=== PATIENT | female | born 1975 | race Two or more races ===

== ENCOUNTER 2017-07-08 09:37 | Inpatient (IN) | payer OTHER ==
[~2017-07-08 09:37] MED LIST: ELECTROLYTE-148 SOLN 1,000 ML IV SCH
[2017-07-08] MEDS ORDERED: CITRIC ACID/SODIUM CITRATE 30 ML UNIT-DOSE CUP PO ONE (10:15)
[2017-07-08 10:25] VITALS: BMI 31.1
[2017-07-08] MEDS ORDERED: ELECTROLYTE-148 SOLN 1,000 ML IV SCH (10:37)
[2017-07-08] MEDS ORDERED: IBUPROFEN 800 MG/8 ML IJ IVPB PRN (11:47)
[2017-07-08] MEDS ORDERED: oxyCODONE HCL 5 MG TABLET PO PRN (11:47)
[2017-07-08] MEDS ORDERED: METHYLERGONOVINE MALEATE 0.2 MG/1 ML AMP IM PRN (11:47)
--- NOTE | 2017-07-08 11:57 | HP ---
Past Medical History - Admission History of Present Illness: 41 y/o with h/o prior delivery here for scheduled repeat c section. Pt with h/o SAB X 3. Pt also with known fibroids. AMA. Chronic UTIs on macrobid suppression throughout . History Source: Patient, Medical Record Limitations to Obtaining History: No Limitations - Past Medical History MEDICAL RECORDS COORDINATOR: No: Migraine Cardiovascular: No: AFIB, HTN Gastrointestinal: Yes: GERD. No: Inflamatory Bowel Disease Renal/: Yes: UTI (pt with chronic UTI , on suppressive therapy) Reproductive: Yes: Fibroids, Other (SAB X 3). No: Ectopic ...: 5 ...Para: 1 ...Term: 1 ...: 0 ...Spon : 3 ...Induced : 0 ...LMP: 10/15/16 ... Weeks Gestation by Dates: 37.5 ...EDC by Dates: 07/24/17 ...EDC by Sono: 07/15/17 Infectious Disease: No: C-Diff, MRSA, STD's Psych: No: Anxiety, Bipolar, Depression - Past Surgical History Past Surgical History: Yes: None Hx Myomectomy: No Hx Transabdominal Cerclage: No - Smoking History Smoking history: Never smoked Have you smoked in the past 12 months: No Aproximately how many cigarettes per day: 0 - Alcohol/Substance Use Hx Alcohol Use: No History of Substance Use: reports: None - Social History ADL: Independent History of Recent Travel: No Home Medications - Allergies Allergies/Adverse Reactions: Allergies Allergy/AdvReac Type Severity Reaction Status Date / Time No Known Drug Allergies Allergy Verified 07/08/17 10:28 sesame seed Allergy Verified 07/08/17 10:28 - Home Medications Home Medications: Ambulatory Orders Vit/Iron Fumarate/FA [ Tablet] 1 tab PO DAILY 07/08/17 Review of Systems - Review of Systems Constitutional: reports: No Symptoms Eyes: reports: No Symptoms HENT: reports: No Symptoms Neck: reports: No Symptoms Cardiovascular: reports: No Symptoms Respiratory: reports: No Symptoms Gastrointestinal: reports: No Symptoms Genitourinary: reports: No Symptoms Breasts: reports: No Symptoms Reported Musculoskeletal: reports: No Symptoms Integumentary: reports: No Symptoms Neurological: reports: No Symptoms Endocrine: reports: No Symptoms Hematology/Lymphatic: reports: No Symptoms Psychiatric: reports: No Symptoms Physical Exam - Maternity Vital Signs: Vital Signs Temperature 98.2 F 07/08/17 09:37 Pulse Rate 78 07/08/17 09:37 Respiratory Rate 20 07/08/17 09:37 Blood Pressure 138/79 07/08/17 09:37 O2 Sat by Pulse Oximetry (%) Constitutional: Yes: Well Nourished, No Distress, Calm Eyes: Yes: Conjunctiva Clear, EOM Intact HENT: Yes: Atraumatic, Normocephalic Neck: Yes: Supple, Trachea Midline Cardiovascular: Yes: Regular Rate and Rhythm Lungs: Clear to auscultation - Abdominal Exam/OB Number of Fetuses: Single Presentation: Vertex Contractions: No Category: I Accelerations: Uniform Decelerations: None - Vaginal Exam/OB Vaginal Bleediing: No Speculum Exam: No Amniotic Membrane Status: Intact - Physical Exam Edema: No Psychiatric: Yes: Alert, Oriented Hemorrhage Risk Assessment - Risk Factors Medium Risk Factors: Yes: Prior , uterine surgery,or multiple laparotomies High Risk Factors: Yes: None Risk Score: 1 Risk Level: Medium Risk Imaging - Results Chest X-ray: Pending X-ray: Pending Cat Scan: Pending Ultrasound: Pending MRI: Pending EKG: Pending Other: Pending Problem List - Problems (1) Advanced maternal age (AMA), 40 years or greater Code(s): [id number] - (2) Fibroids Code(s): D25.9 - LEIOMYOMA OF UTERUS, UNSPECIFIED Assessment/Plan 41 y/o with SIUP at 39 weeks, for scheduled repeat c section AFVSS FHTS cat 1 NPO, dueñas, SCDs anesthesia and nursing ready and aware
[2017-07-08] MEDS ORDERED: OXYTOCIN 20 UNITS in 0.9% NS 20 UNIT/1,000 ML INFUS.BAG IV SCH (12:00)
[2017-07-08] MEDS ORDERED: ONDANSETRON 4 MG/2 ML VIAL IVPUSH PRN (12:50)
[2017-07-08] MEDS ORDERED: ACETAMINOPHEN 1000 MG/100 ML VIAL (NON FORMULARY) IVPB PRN (12:51)
--- NOTE | 2017-07-08 12:58 | OP ---
Operative Note - Note: Operative Date: 07/08/17 Pre-Operative Diagnosis: prior delivery, declined TOLAC, fibroid uterus Operation: repeat low transverse delivery Post-Operative Diagnosis: Same as Pre-op Surgeon: Dang Santiago Ct Scan Technologist: Casey Diaz Anesthesiologist/MACHINE CEMENTER AND FOLDER: Rashida Herrera Anesthesia: Spinal Specimens Removed: placenta, cord blood Estimated Blood Loss (mls): 600 Operative Report Dictated: Yes
--- NOTE | 2017-07-08 13:28 | SURG ---
Surgery Certification Technician Note Certification Technician: Casey Diaz PA-C Date of Service: 07/08/17 Diagnosis: prior delivery, declined TOLAC, fibroid uterus Procedure: repeat low transverse delivery I was present for the entirety of the operative procedure. For further detail, please refer to operative report. Visit type - Case Type Case Type: Scheduled Admission - New patient This patient is new to me today: Yes Date on this admission: 07/08/17
[2017-07-08] MEDS ORDERED: TUBERCULIN PPD 5 TU/0.1ML SYRINGE (IN PATIENT USE ONLY) ID ONE (16:45)
[2017-07-08] MEDS: FERROUS SO4 325 MG TABLET (FP) PO SCH (21:22)
--- NOTE | 2017-07-09 08:29 | PN ---
Post Progress Note - Subjective Subjective: 41 yo Para 2 with previous , status post repeat , seen and evaluated. She's doing well, she's out of bed to chair. Post Day: 1 Type of Delivery: Repeat C/S Vital Signs: Vital Signs Temperature 98.9 F 07/09/17 06:00 Pulse Rate 69 07/09/17 06:00 Respiratory Rate 18 07/09/17 06:00 Blood Pressure 108/52 07/09/17 06:00 O2 Sat by Pulse Oximetry (%) 100 07/08/17 14:00 Breast Exam: Yes: Soft Uterus: Yes: Fundus Firm Incision: Yes: Dressing dry and intact Abdomen/GI: Yes: Abdomen soft Lochia: Yes: Rubra Lochia, amount: Small Extremities: Yes: Calves non-tender Activity: Ambulating Problem List - Problems (1) Status post repeat low transverse section Code(s): Z98.891 - HISTORY OF UTERINE SCAR FROM PREVIOUS SURGERY Assessment/Plan Status post repeat Ambulation Analgesia as needed Continue routine post op care
[2017-07-09 08:36] LABS: BASOPHIL 0.2 % (0-2.0); EOSINOPHIL 0.5 % (0-4.5); MCH 29.1 pg (25.7-33.7); MCHC 34.3 g/dl (32.0-36.0); MEAN PLT VOLUME 10.6 fl (7.5-11.1); PLATELET COUNT 104 K/MM3 (134-434); RDW 14.6 % (11.6-15.6); WHITE BLOOD COUNT 10.8 K/mm3 (4.0-10.0)
[2017-07-09] MEDS: PRENATAL VITAMINS W/ FOLIC ACID TABLET (FP) PO SCH (10:33)
[2017-07-09] MEDS: FERROUS SO4 325 MG TABLET (FP) PO SCH ×2 (10:33→23:00)
[2017-07-09] MEDS ORDERED: BISACODYL 10 MG SUPP.RECT RC PRN (11:48)
[2017-07-09] MEDS: SIMETHICONE 80 MG TAB.CHEW (FP) PO PRN ×2 (11:52→17:39)
[2017-07-09] MEDS: oxyCODONE HCL 5 MG TABLET PO PRN ×3 (11:52→23:00)
[2017-07-09] MEDS: ACETAMINOPHEN 325 MG TABLET (FP) PO PRN ×3 (11:53→23:01)
[2017-07-09 12:48] LABS: URINE APPEARANCE SLCLOUDY; URINE BILIRUBIN NEGATIVE (NEGATIVE); URINE BLOOD 3+ (NEGATIVE); URINE COLOR LTYELLOW; URINE GLUCOSE (UA) 1+ (NEGATIVE); URINE KETONE NEGATIVE (NEGATIVE); URINE NITRITE NEGATIVE (NEGATIVE); URINE UROBILINOGEN NEGATIVE mg/dL (0.2-1.0)
[2017-07-09 12:52] LABS: URINE PROTEIN 1+ (NEGATIVE)
[2017-07-09 13:04] LABS: URINE MUCUS RARE; URINE RBC 3 /hpf (0-3); URINE WBC 8 /hpf (3-5)
--- NOTE | 2017-07-09 15:09 | PN ---
Progress Note (short form) - Note Progress Note: Anesthesia POD#1 S/P Repeat under Spinal A and Duramorph VSS,no N/V,some residual itch,moving fine,pain is under control. Rashida Herrera MD.
[2017-07-09 17:41] LABS: URINE LEUK ESTERASE TRACE (NEGATIVE)
[2017-07-09] MEDS: SENNOSIDES/DOCUSATE COMBO (SENNA PLUS) TABLET (UD) PO PRN (23:01)
[2017-07-10] MEDS: ACETAMINOPHEN 325 MG TABLET (FP) PO PRN ×3 (05:01→20:57)
[2017-07-10] MEDS: SIMETHICONE 80 MG TAB.CHEW (FP) PO PRN ×3 (05:01→20:58)
[2017-07-10] MEDS: oxyCODONE HCL 5 MG TABLET PO PRN ×2 (05:02→09:10)
--- NOTE | 2017-07-10 07:34 | PN ---
Post Note - Post Date of Delivery: 07/08/17 Post Day: 2 Vital Signs: Vital Signs - 24 hr 07/09/17 07/09/17 07/09/17 08:00 09:00 10:00 Temperature 98.4 F Pulse Rate 70 Respiratory 20 20 20 Rate Blood Pressure 110/60 07/09/17 07/09/17 07/09/17 11:00 12:00 13:00 Temperature Pulse Rate Respiratory 20 20 20 Rate Blood Pressure 07/09/17 07/09/17 07/09/17 14:00 15:00 15:05 Temperature 99 F Pulse Rate 80 Respiratory 20 20 20 Rate Blood Pressure 110/60 07/09/17 07/09/17 18:00 22:00 Temperature 98.8 F 98.9 F Pulse Rate 72 69 Respiratory 20 18 Rate Blood Pressure 100/60 116/60 Labs: Laboratory Results - last 24 hr 07/09/17 07/09/17 08:00 12:00 WBC 10.8 H RBC 3.70 Hgb 10.8 Hct 31.4 L MCV 85.0 MCH 29.1 MCHC 34.3 RDW 14.6 Plt Count 104 L MPV 10.6 D Neutrophils % 82.0 Lymphocytes % 9.4 Monocytes % 7.9 Eosinophils % 0.5 Basophils % 0.2 Urine Color Ltyellow Urine Appearance Slcloudy Urine pH 5.0 Ur Specific Ellinger 1.005 Urine Protein 1+ H Urine Glucose (UA) 1+ H Urine Ketones Negative Urine Blood 3+ H Urine Nitrite Negative Urine Bilirubin Negative Urine Urobilinogen Negative Ur Leukocyte Esterase Trace H Urine WBC (Auto) 8 Urine RBC (Auto) 3 Ur Epithelial Cells Few Urine Mucus Rare - Subjective Subjective: No Complaints - Objective Afebrile: Yes Breast: Not engorged Abdomen: Soft, Non-tender Uterus: Fundus firm, Non-tender Vagina: Scant lochia Extremities: Non-tender - Assessment/Plan (1) Status post repeat low transverse section Assessment: Other (SP CS POD 2) Plan: Routine Care
[2017-07-10] MEDS: FERROUS SO4 325 MG TABLET (FP) PO SCH ×2 (09:10→20:57)
[2017-07-10] MEDS: PRENATAL VITAMINS W/ FOLIC ACID TABLET (FP) PO SCH (09:10)
--- NOTE | 2017-07-10 12:53 | OP ---
DATE OF OPERATION: 07/08/2017 PREOPERATIVE DIAGNOSIS: Prior delivery, declined trial of labor after , fibroid uterus, and at 39 weeks gestation. POSTOPERATIVE DIAGNOSIS: Prior delivery, declined trial of labor after , fibroid uterus, and at 39 weeks gestation. PROCEDURE: Repeat low transverse delivery. SURGEON: Dang Santiago MD PASTE THINNER: PONCHO Mercado COMPLICATIONS: None. ESTIMATED BLOOD LOSS: 600 mL. SPECIMENS: Included placenta and cord blood. COUNTS: Sponge, needle, and instrument counts were correct at the end of the case. DISPOSITION: Stable to the PACU. BRIEF HISTORY AND PROCEDURE: Patient is a 41-year-old female who was admitted to [facility] on July 08, 2017, for a scheduled repeat delivery. The patient signed consents upon admission. She was then taken back to the operating room, given spinal anesthesia by Dr. Rashida Herrera, and placed in the dorsal supine position. A Mcadams catheter was placed under sterile conditions. She was then prepped and draped in the usual sterile fashion, and a hard time-out was performed. A Pfannenstiel skin incision was created in the skin with a scalpel and carried to the underlying layer of rectus fascia with the scalpel as well as with the Bovie. The fascia was incised on either side of the midline, and the incision was carried in superolateral direction sharply. The fascia was tented upwards and dissected off the underlying layer of rectus muscle with the Bovie. The rectus muscle was identified, the midline laterally, and the peritoneum was entered sharply. The peritoneum was then carefully dissected to allow for adequate room for delivery. A bladder blade was then inserted. A bladder flap was created and bladder blade was adjusted to protect the bladder. A transverse incision was created in the lower uterine segment, and the incision was carried in the superolateral direction bluntly. The infant was then delivered without difficulty. Bilateral shoulders were delivered with ease. The cord was clamped twice and cut in between. The infant was taken over to the warmer to be assessed by the neonatology staff. Placenta was then delivered with the 3-vessel cord and intact. It was manually extracted. The uterus was exteriorized from the abdomen, inspected, and cleared of all amniotic membrane and debris with a dry lap sponge. The hysterotomy was reapproximated in a double- layer closure first with 1 Vicryl suture in a running locked fashion, second one was 0 Biosyn suture in a running fashion and imbricating layer. Bilateral tubes and ovaries were inspected and noted to be normal. A large approximately 5-cm fibroid was noted in the fundus of the uterus. It appeared to be intramural. At this point, it was decided to not attempt to excise the fibroid secondary to increased risk for blood loss at this time. The uterus was placed back in the abdomen. Bilateral gutters were inspected and cleared of all blood clot and debris with a lap sponge. The peritoneum was reapproximated using 2-0 chromic in a running fashion. The musculature was reapproximated in 2 interrupted sutures, and the fascia was reapproximated using 1 Vicryl in a running fashion. The subcutaneous tissue was irrigated and reapproximated in a running fashion. The skin was reapproximated in a subcuticular fashion using V-Loc suture. Sponge, needle and instrument counts were reported as correct. The patient tolerated the procedure well and was recovering in stable condition in the unit at the time of this dictation. DANG SANTIAGO DO /[id number]
[2017-07-10] MEDS: IBUPROFEN 600 MG TABLET (FP) PO PRN (20:57)
[2017-07-10] MEDS: SENNOSIDES/DOCUSATE COMBO (SENNA PLUS) TABLET (UD) PO PRN (20:58)
[2017-07-11] MEDS: ACETAMINOPHEN 325 MG TABLET (FP) PO PRN (07:17)
[2017-07-11] MEDS: IBUPROFEN 600 MG TABLET (FP) PO PRN (07:18)
[2017-07-11] MEDS: SIMETHICONE 80 MG TAB.CHEW (FP) PO PRN (07:19)
[2017-07-11 08:33] LABS: BASOPHIL 0.2 % (0-2.0); EOSINOPHIL 3.2 % (0-4.5); MCH 28.9 pg (25.7-33.7); MCHC 33.7 g/dl (32.0-36.0); MEAN CELL VOLUME 85.8 fl (80-96); MEAN PLT VOLUME 11.1 fl (7.5-11.1); NEUTROPHILS 75.8 % (42.8-82.8); PLATELET COUNT 122 K/MM3 (134-434); RDW 15.2 % (11.6-15.6); WHITE BLOOD COUNT 8.6 K/mm3 (4.0-10.0)
[2017-07-11] MEDS: PRENATAL VITAMINS W/ FOLIC ACID TABLET (FP) PO SCH (10:09)
[2017-07-11] MEDS: FERROUS SO4 325 MG TABLET (FP) PO SCH (10:09)
--- NOTE | 2017-07-11 11:13 | PN ---
Post Progress Note - Subjective Subjective: Pt doing well. Pain controlled, Tolerating diet, ambulating, voiding, passing flatus. No BM yet. Type of Delivery: Repeat C/S Vital Signs: Vital Signs Temperature 98.1 F 07/10/17 22:00 Pulse Rate 67 07/10/17 22:00 Respiratory Rate 18 07/10/17 22:00 Blood Pressure 131/81 07/10/17 22:00 O2 Sat by Pulse Oximetry (%) 100 07/08/17 14:00 Uterus: Yes: Fundus Firm Incision: Yes: Dressing dry and intact Abdomen/GI: Yes: Passing flatus, Tolerating PO. No: Tender Extremities: Yes: Calves non-tender. No: Edema Activity: Ambulating - Labs Labs: CBC WBC 8.6 K/mm3 (4.0-10.0) 07/11/17 08:00 RBC 3.76 M/mm3 (3.60-5.2) 07/11/17 08:00 Hgb 10.9 GM/dL (10.7-15.3) 07/11/17 08:00 Hct 32.3 % (32.4-45.2) L 07/11/17 08:00 MCV 85.8 fl (80-96) 07/11/17 08:00 MCH 28.9 pg (25.7-33.7) 07/11/17 08:00 MCHC 33.7 g/dl (32.0-36.0) 07/11/17 08:00 RDW 15.2 % (11.6-15.6) 07/11/17 08:00 Plt Count 122 K/MM3 (134-434) L 07/11/17 08:00 MPV 11.1 fl (7.5-11.1) 07/11/17 08:00 Neutrophils % 75.8 % (42.8-82.8) 07/11/17 08:00 Lymphocytes % 13.4 % (8-40) D 07/11/17 08:00 Monocytes % 7.4 % (3.8-10.2) 07/11/17 08:00 Eosinophils % 3.2 % (0-4.5) D 07/11/17 08:00 Basophils % 0.2 % (0-2.0) 07/11/17 08:00 Problem List - Problems (1) Advanced maternal age (AMA), 40 years or greater Code(s): [id number] - (2) Fibroids Code(s): D25.9 - LEIOMYOMA OF UTERUS, UNSPECIFIED Assessment/Plan 41 y/o POD#3 s/p repeat delivery. AFVSS Hgb 10.9 post op pt stable, ok for suppository or enema to facilitate BM, then ok for discharge home today
--- NOTE | 2017-07-11 11:34 | DS ---
Physical Exam-HIV CTS SPECIALIST Vital Signs: Vital Signs Temperature 98.1 F 07/10/17 22:00 Pulse Rate 67 07/10/17 22:00 Respiratory Rate 18 07/10/17 22:00 Blood Pressure 131/81 07/10/17 22:00 O2 Sat by Pulse Oximetry (%) 100 07/08/17 14:00 Constitutional: Yes: Well Nourished, No Distress, Calm Eyes: Yes: Conjunctiva Clear, EOM Intact HENT: Yes: Atraumatic, Normocephalic Neck: Yes: Supple, Trachea Midline Cardiovascular: Yes: Regular Rate and Rhythm Respiratory: Yes: Regular, CTA Bilaterally Gastrointestinal: Yes: Normal Bowel Sounds, Soft ....Post : Yes: Uterus firm, Uterus non-tender Breast(s): Yes: WNL Musculoskeletal: Yes: WNL Extremities: Yes: WNL Integumentary: Yes: Tenting Wound/Incision: Yes: Well Approximated Neurological: Yes: Alert, Oriented Psychiatric: Yes: Alert, Oriented Labs: CBC, BMP 07/11/17 08:00 Delivery - Delivery Section: Repeat, Low Flap Transverse Type of Anesthesia: Spinal Episiotomy/Laceration: None EBL (cc): 600 Delivery, Single - Stages of Labor Date of Delivery: 07/08/17 Time of Delivery: 12:24 Time Placenta Delivered: 12:25 Placenta: Yes: Manual Removal - Condition of Infant Geological Scout/Pantry Chef Present: Yes Name: Stephanie Reed Infant Gender: Female Weight: 6 lb 10 oz Position: Left, OA Total Hours ROM (Hrs/Mins): 2 minutes - 1 Minute Total Score: 9 5 Minutes Total Score: 9 - [place] Feeding Plan Initial Plan: Exclusive throughout hospitalization Discharge Summary Reason For Visit: C SECTION Current Active Problems Advanced maternal age (AMA), 40 years or greater (Acute) Fibroids (Acute) Status post repeat low transverse section (Acute) Procedures: Principal: repeat low transverse c section Hospital Course: Pt admitted on 07/08 for repeat delivery. Pt underwent uncomplicated delivery and then had an uncomplicated post course. She was discharged home in stable condition on post op day 3. Condition: Good - Instructions Diet, Activity, Other Instructions: Physical activity Resume your normal everyday activity as tolerated but no heavy lifting or strenuous exercise until seen by your surgeon. You may walk unlimited amounts of and climb stairs. You may resume driving the car when you feel safe and comfortable behind the wheel. No sexual activity as instructed for 6 weeks. Wound care If there are tapes on the skin leave them in place. They will peel off in the next 7 to 10 days. Do Not Peel them off. You may shower the day after surgery. If there are tapes present on the skin, you may shower over them. Diet There are no dietary restrictions. Eat healthy, high-fiber foods. Drink 6 to 8 glasses of liquid each day. This will assist in keeping your bowels regular. Pain management You may take Tylenol or Ibuprofen (for example, Motrin, Advil etc.) for mild pain. If you have any severe pain, please take the medication sent to your pharmacy as directed. Call MD for any of the following: Severe pain not relieved by medication Fever of 101 or higher Excessive bleeding or drainage on dressing Inability to urinate Referrals: Dang Santiago DO [Staff Physician] - Disposition: HOME - Home Medications Comprehensive Discharge Medication List: Ambulatory Orders Vit/Iron Fumarate/FA [ Tablet] 1 tab PO DAILY 07/08/17
[2017-07-11 13:30] VITALS: BP 126/80; PULSE 70; TEMP 97.9
--- NOTE | 2017-07-12 16:52 | PATH ---
Surgical Pathology Report Patient Name: SAMMIE KELLER [facility]. Rec. #: [id number] /Age/Gender: 1975 (Age: 41) / F Account: [id number] Location: [facility] OBS/PRODUCTION BROACHER Taken: 07/08/2017 Received: 07/09/2017 Reported: 07/12/2017 Physicians: Dang Santiago M.D. Specimen(s) Received PLACENTA Clinical History , SAB x3, 2006, fibroid uterus, advanced maternal age, cystic fibrosis carrier, sickle cell trait, recurrent UTIs during Final Diagnosis PLACENTA, SECTION: 375 g THIRD TRIMESTER PLACENTA WITH TRIVASCULAR UMBILICAL CORD AND UNREMARKABLE PLACENTAL MEMBRANES. Electronically Signed Paris Lyons M.D. Gross Description The specimen is received fresh labeled placenta and is a 375 gram, 17.5 x 15.5 x 2.2 cm. placenta with attached membranes and umbilical cord. The attached membranes are macedo, translucent with focal opacities and insert marginally. The umbilical cord measures 28 cm. in length and averages 1.1 cm. in diameter. The cord inserts eccentrically, 4 cm. to the nearest margin. No true knots or strictures are identified. Cut surface of the umbilical cord reveals 3 vessels. The surface is bojorquez-blue with minimal fibrin deposition and appropriate caliber vessels. The maternal surface is red-brown with focal defects. Sectioning reveals red-brown, spongy parenchyma. No lesions are identified. Tool And Fixture Repairer sections are submitted in three cassettes as follows: 1- membrane rolls and umbilical cord; 2-3- full thickness sections of placenta. 07/11/201707/11/2017
== END 2017-07-11 21:35 | disposition home or self-care (01) | DRG 765 ==
LOC: JLDR 09:37 → J3W 14:30
PROVIDERS: ADMIT Obstetrics & Gynecology; ATTEND Obstetrics & Gynecology
PROC: 10D00Z1 Extraction of Products of Conception, Low, Open Approach (ICD-10-PCS; principal; 2017-07-08)
DX: O34.211 Maternal care for low transverse scar from previous cesarean delivery (principal); O26.23 Pregnancy care for patient with recurrent pregnancy loss, third trimester; O34.13 Maternal care for benign tumor of corpus uteri, third trimester; Z3A.37 37 weeks gestation of pregnancy; Z37.0 Single live birth
CPT/HCPCS: 36415; 81003; 81015; 85025; 87086

== ENCOUNTER 2021-04-09 17:25 | Emergency (ER) | payer BC ==
[2021-04-09 18:06] VITALS: BP 140/77; PULSE 87; TEMP 98.6; BMI 30.7
[2021-04-09] MEDS ORDERED: METOCLOPRAMIDE HCL INJECTION 10 MG/2 ML VIAL IVPB ONE (18:09)
[2021-04-09] MEDS ORDERED: ACETAMINOPHEN 1000 MG/100 ML VIAL (NON FORMULARY) IVPB ONE (18:10)
[2021-04-09] MEDS ORDERED: ACETAMINOPHEN INJECTION 100 ML IVPB ONE (18:17)
[2021-04-09] MEDS ORDERED: METOCLOPRAMIDE HCL INJECTION 10 MG/2 ML VIAL ONE (18:17)
== END 2021-04-09 19:30 | disposition home or self-care (01) ==
LOC: FER 17:25
PROC: 3E033GC Introduction of Other Therapeutic Substance into Peripheral Vein, Percutaneous Approach (ICD-10-PCS; principal; 2021-04-09)
DX: R51.9 Headache, unspecified (principal); R20.2 Paresthesia of skin
CPT/HCPCS: 70450-TC; 99285-25; J0131